=== PATIENT | male | born 1955 | race Caucasian/White ===

== ENCOUNTER 2022-05-01 15:54 | Inpatient (IN) ==
[2022-05-01 18:11] LABS: Basophils % 0.8 %; Eosinophils # 0.2 K/mcL (0.0-0.6); Eosinophils % 3.4 %; Hematocrit 22.5 % (37.5-50.1); Hemoglobin 6.6 g/dL (12.9-16.9); Immature Granulocytes % 0.4 % (0-4); Lymphocytes % 18.8 %; Mean Corpuscular HGB Conc 29.3 g/dL (31.6-35.5); Mean Corpuscular Hemoglobin 28.3 pg (28.0-33.3); Mean Corpuscular Volume 96.6 fL (83.0-100.0); Monocytes # 0.4 K/mcL (0.0-1.3); Monocytes % 8.1 %; Neutrophils # 3.7 K/mcL (1.6-8.9); Platelet Count 227 K/mcL (140-400); Red Blood Count 2.33 M/mcL (4.19-5.50); Segmented Neutrophils % 68.5 %; White Blood Count 5.3 K/mcL (4.3-11.1)
[2022-05-01 18:31] LABS: Calcium 8.8 mg/dL (8.6-10.3); Potassium 4.1 mEq/L (3.5-5.1)
[2022-05-01 18:33] LABS: INR 1.1; Prothrombin Time 12.3 Seconds (9.4-12.1)
[2022-05-01] MEDS ORDERED: Iopamidol - 370 500 ML MLS IVP ONE (20:23)
[2022-05-01] MEDS ORDERED: 0.9 % Sodium Chloride 250 ML ONE (21:21)
[2022-05-01] MEDS ORDERED: Pantoprazole 40 MG VIAL IVP ONE (21:55)
[2022-05-01] MEDS ORDERED: Melatonin 3 MG TABLET PO PRN (23:27)
[2022-05-01] MEDS ORDERED: Acetaminophen 325 MG TABLET PO PRN (23:27)
[2022-05-01] MEDS ORDERED: Naloxone 0.4 MG/ML INJ IVP PRN (23:27)
[2022-05-01] MEDS ORDERED: Ondansetron 4 MG/2 ML VIAL IVP PRN (23:27)
[2022-05-01] MEDS ORDERED: *HR* HYDROcodone/Acet 5/325 mg TABLET PO PRN (23:27)
[2022-05-01] MEDS ORDERED: Furosemide 20 MG TABLET PO PRN (23:31)
[2022-05-02] MEDS ORDERED: 0.9 % Sodium Chloride 250 ML ONE (00:49)
[2022-05-02 05:54] LABS: Basophils # 0.1 K/mcL (0.0-0.2); Basophils % 0.9 %; Eosinophils # 0.2 K/mcL (0.0-0.6); Eosinophils % 4.4 %; Hemoglobin 7.9 g/dL (12.9-16.9); Immature Granulocytes % 0.4 % (0-4); Lymphocytes # 1.2 K/mcL (0.6-4.6); Lymphocytes % 21.7 %; Mean Corpuscular HGB Conc 31.6 g/dL (31.6-35.5); Mean Corpuscular Volume 91.9 fL (83.0-100.0); Monocytes # 0.5 K/mcL (0.0-1.3); Monocytes % 8.5 %; Neutrophils # 3.5 K/mcL (1.6-8.9); Platelet Count 182 K/mcL (140-400); Red Blood Count 2.72 M/mcL (4.19-5.50); Red Cell Distribution Width 14.9 % (11.5-14.5); Segmented Neutrophils % 64.1 %; White Blood Count 5.4 K/mcL (4.3-11.1)
[2022-05-02] MEDS ORDERED: Pantoprazole 40 MG VIAL IVP SCH (06:00)
[2022-05-02 06:01] LABS: INR 1.1; Prothrombin Time 12.3 Seconds (9.4-12.1)
[2022-05-02 06:15] LABS: Calcium 8.1 mg/dL (8.6-10.3); Magnesium 2.1 mg/dL (1.6-2.6); Potassium 3.9 mEq/L (3.5-5.1)
[2022-05-02] MEDS ORDERED: SODIUM CHLORIDE/NAHCO3/KCL/PEG 4,000 ML SOLN.RECON PO ONE (17:00)
[2022-05-02] MEDS: Metoprolol XL (24 HR) Succ 50 MG TAB.ER.24H PO SCH (17:05)
[2022-05-02] MEDS: Gabapentin 100 MG CAPSULE PO SCH (20:19)
[2022-05-03 05:43] LABS: Basophils # 0.1 K/mcL (0.0-0.2); Basophils % 0.7 %; Eosinophils # 0.2 K/mcL (0.0-0.6); Eosinophils % 3.1 %; Hematocrit 27.5 % (37.5-50.1); Hemoglobin 8.4 g/dL (12.9-16.9); Immature Granulocytes % 0.4 % (0-4); Lymphocytes # 1.6 K/mcL (0.6-4.6); Lymphocytes % 21.2 %; Mean Corpuscular HGB Conc 30.5 g/dL (31.6-35.5); Mean Corpuscular Hemoglobin 28.5 pg (28.0-33.3); Mean Corpuscular Volume 93.2 fL (83.0-100.0); Mean Platelet Volume 10.1 fL (9.4-12.4); Monocytes # 0.7 K/mcL (0.0-1.3); Monocytes % 8.8 %; Neutrophils # 4.9 K/mcL (1.6-8.9); Platelet Count 262 K/mcL (140-400); Red Blood Count 2.95 M/mcL (4.19-5.50); Red Cell Distribution Width 14.7 % (11.5-14.5); Segmented Neutrophils % 65.8 %; White Blood Count 7.4 K/mcL (4.3-11.1)
[2022-05-03 06:09] LABS: Calcium 8.4 mg/dL (8.6-10.3); Potassium 3.7 mEq/L (3.5-5.1)
[2022-05-03] MEDS: Cholecalciferol (D-3) 1,000 UNIT (25MCG) TABLET PO SCH (08:51)
[2022-05-03] MEDS: Pantoprazole 40 MG VIAL IVP SCH (08:51)
[2022-05-03] MEDS: Cyanocobalamin (B-12) 1,000 MCG TABLET PO SCH (08:51)
[2022-05-03] MEDS: Gabapentin 100 MG CAPSULE PO SCH ×2 (08:51→21:20)
[2022-05-03] MEDS ORDERED: *HR* Propofol 200 MG/20 ML VIAL IVP ONE (13:27)
[2022-05-03] MEDS ORDERED: Lidocaine -MPF 2% 2 ML VIAL ONE (13:27)
[2022-05-03] MEDS: Metoprolol XL (24 HR) Succ 50 MG TAB.ER.24H PO SCH (16:07)
[2022-05-04 04:06] LABS: Basophils % 0.6 %; Eosinophils # 0.2 K/mcL (0.0-0.6); Eosinophils % 3.1 %; Hematocrit 20.7 % (37.5-50.1); Immature Granulocytes % 0.2 % (0-4); Lymphocytes # 1.1 K/mcL (0.6-4.6); Lymphocytes % 22.5 %; Mean Corpuscular HGB Conc 30.9 g/dL (31.6-35.5); Mean Corpuscular Hemoglobin 28.6 pg (28.0-33.3); Mean Corpuscular Volume 92.4 fL (83.0-100.0); Mean Platelet Volume 9.7 fL (9.4-12.4); Monocytes # 0.6 K/mcL (0.0-1.3); Monocytes % 13.2 %; Neutrophils # 2.9 K/mcL (1.6-8.9); Platelet Count 195 K/mcL (140-400); Red Blood Count 2.24 M/mcL (4.19-5.50); Red Cell Distribution Width 14.3 % (11.5-14.5); Segmented Neutrophils % 60.4 %; White Blood Count 4.8 K/mcL (4.3-11.1)
[2022-05-04 04:23] LABS: Calcium 8.6 mg/dL (8.6-10.3); Potassium 3.9 mEq/L (3.5-5.1)
[2022-05-04 04:30] LABS: Hemoglobin 6.4 g/dL (12.9-16.9)
[2022-05-04] MEDS ORDERED: 0.9 % Sodium Chloride 250 ML ONE (07:50)
[2022-05-04] MEDS: Cyanocobalamin (B-12) 1,000 MCG TABLET PO SCH (08:02)
[2022-05-04] MEDS: Pantoprazole 40 MG VIAL IVP SCH (08:03)
[2022-05-04] MEDS: Cholecalciferol (D-3) 1,000 UNIT (25MCG) TABLET PO SCH (08:03)
[2022-05-04] MEDS: Gabapentin 100 MG CAPSULE PO SCH (08:03)
[2022-05-04] MEDS ORDERED: Hydrocortisone Acetate 25 MG RECTAL SUPPOSITORY RC SCH (10:15)
[2022-05-04 10:53] VITALS: O2SAT 96
[2022-05-04 13:15] LABS: Hematocrit 23.3 % (37.5-50.1); Hemoglobin 7.1 g/dL (12.9-16.9)
[2022-05-04 14:53] VITALS: BP 156/67; PULSE 68; TEMP 99.1
== END 2022-05-04 15:04 | disposition home or self-care (01) | DRG 378 ==
LOC: EMEROOARM 15:54 → 2ANU 15:54
PROVIDERS: ADMIT Internal Medicine; ATTEND Internal Medicine

== ENCOUNTER 2022-05-14 21:33 | Observation (INO) ==
[2022-05-15 00:59] LABS: Basophils % 0.7 %; Eosinophils # 0.2 K/mcL (0.0-0.6); Hematocrit 19.8 % (37.5-50.1); Immature Granulocytes % 0.3 % (0-4); Lymphocytes # 1.3 K/mcL (0.6-4.6); Lymphocytes % 21.1 %; Mean Corpuscular HGB Conc 29.3 g/dL (31.6-35.5); Mean Corpuscular Hemoglobin 26.9 pg (28.0-33.3); Mean Corpuscular Volume 91.7 fL (83.0-100.0); Mean Platelet Volume 9.9 fL (9.4-12.4); Monocytes # 0.6 K/mcL (0.0-1.3); Monocytes % 9.9 %; Neutrophils # 3.9 K/mcL (1.6-8.9); Platelet Count 236 K/mcL (140-400); Red Blood Count 2.16 M/mcL (4.19-5.50); Red Cell Distribution Width 15.2 % (11.5-14.5)
[2022-05-15 01:02] LABS: Hemoglobin 5.8 g/dL (12.9-16.9)
[2022-05-15 01:03] LABS: INR 1.1; Prothrombin Time 11.9 Seconds (9.4-12.1)
[2022-05-15 01:05] LABS: Activated Partial Thrombo Time 23.6 Seconds (26.0-36.0)
[2022-05-15 01:12] LABS: Calcium 8.8 mg/dL (8.6-10.3)
[2022-05-15] MEDS ORDERED: 0.9 % Sodium Chloride 250 ML ONE ×2 (02:13→04:17)
[2022-05-15] MEDS ORDERED: Naloxone 0.4 MG/ML INJ IVP PRN (08:39)
[2022-05-15 10:43] LABS: Hematocrit 28.3 % (37.5-50.1)
[2022-05-15 11:09] LABS: Hemoglobin 8.5 g/dL (12.9-16.9)
[2022-05-15 21:04] LABS: Hematocrit 25.4 % (37.5-50.1); Hemoglobin 7.7 g/dL (12.9-16.9)
[2022-05-16 05:55] LABS: Hematocrit 25.6 % (37.5-50.1); Hemoglobin 7.6 g/dL (12.9-16.9); Mean Corpuscular HGB Conc 29.7 g/dL (31.6-35.5); Mean Corpuscular Hemoglobin 26.6 pg (28.0-33.3); Mean Corpuscular Volume 89.5 fL (83.0-100.0); Platelet Count 159 K/mcL (140-400); Red Blood Count 2.86 M/mcL (4.19-5.50); Red Cell Distribution Width 14.9 % (11.5-14.5); White Blood Count 5.8 K/mcL (4.3-11.1)
[2022-05-16 05:57] LABS: Hematocrit 25.8 % (37.5-50.1); Hemoglobin 7.6 g/dL (12.9-16.9)
[2022-05-16 06:14] LABS: Calcium 7.9 mg/dL (8.6-10.3); Magnesium 1.9 mg/dL (1.6-2.6); Phosphorous 4.1 mg/dL (2.7-4.5)
[2022-05-16] MEDS ORDERED: Albuterol 2.5 MG/3 ML NEBULIZER IH PRN (08:07)
[2022-05-16] MEDS ORDERED: Cholecalciferol (D-3) 1,000 UNIT (25MCG) TABLET PO SCH (09:00)
[2022-05-16] MEDS ORDERED: Gabapentin 100 MG CAPSULE PO SCH (09:00)
[2022-05-16] MEDS ORDERED: Hydrocortisone Acetate 25 MG RECTAL SUPPOSITORY RC SCH (09:00)
[2022-05-16] MEDS ORDERED: NON-FORMULARY MEDICATION 1 EACH EACH (Cyanocobalamin (Vitamin B-12) [Vitamin B-12] 100 MCG PO SCH (09:00)
[2022-05-16 10:52] VITALS: BP 131/67; PULSE 83; TEMP 98.9; O2SAT 97
[2022-05-16 12:19] LABS: Hematocrit 30.3 % (37.5-50.1); Hemoglobin 9.1 g/dL (12.9-16.9)
== END 2022-05-16 14:05 | disposition home or self-care (01) ==
LOC: 3NENU 21:33 → EMEROOARM 21:33 → SUATTDRO 05-15 08:29 → 3NENU 05-15 09:25
PROVIDERS: ADMIT Internal Medicine; ATTEND Internal Medicine